=== PATIENT | female | born 1965 | race Hispanic/Latino ===

== ENCOUNTER 2020-03-29 10:23 | Emergency (ER) | payer OTHER ==
[2020-03-29] MEDS ORDERED: ACETAMINOPHEN 325 MG TAB ONE (10:43)
== END 2020-03-29 11:10 | disposition home or self-care (01) ==
LOC: EDH 10:23
DX: R05 Cough (principal); Z90.49 Acquired absence of other specified parts of digestive tract; Z20.828 Contact with and (suspected) exposure to other viral communicable diseases
CPT/HCPCS: 36415; 71045; 99284; U0003

== ENCOUNTER 2023-09-18 12:06 | Observation (INO) | payer BC, OTHER ==
[~2023-09-18] VITALS: Ht 157.5 cm; Wt 57.6 kg
[2023-09-18] MEDS ORDERED: LACTATED RINGERS 1000ML 1,000 ML IV ONE ×2 (12:30→13:30)
[2023-09-18] MEDS ORDERED: ONDANSETRON 4MG INJ IVP ONE (12:30)
[2023-09-18] MEDS ORDERED: MORPHINE 2 MG SYG IVP ONE (12:30)
[2023-09-18 12:42] LABS: HEMATOCRIT 37.2 % (36-48); MEAN CORPUSCULAR HEMOGLOBIN 32.1 pg (27.0-33.0); MEAN CORPUSCULAR HGB CONC 34.1 g/dL (32.0-36.0); MEAN CORPUSCULAR VOLUME 93.9 fL (79-99); RED BLOOD CELL COUNT(AUTO) 3.96 MIL/uL (4.00-5.50); RED CELL DISTRIBUTION WIDTH 12.3 % (11.0-15.5); WHITE BLOOD COUNT (AUTO) 12.3 K/uL (4.8-10.8)
[2023-09-18 12:50] LABS: CREATININE 0.7 mg/dL (0.5-1.5); POTASSIUM 3.6 mmol/L (3.5-5.1)
[2023-09-18 12:55] VITALS: PULSE 85; RESP 18; O2SAT 100
[2023-09-18] MEDS ORDERED: PHARMACY COMMUNICATION MISC SCH (13:00)
[2023-09-18] MEDS ORDERED: KETAMINE 50MG/ML SYRINGE 50 MG/ML DISP.SYRIN IV ONE (13:00)
[2023-09-18 13:38] LABS: MAGNESIUM 1.6 mg/dL (1.80-2.40); THYROID STIMULATING HORMONE 1.59 uIU/mL (0.36-3.74)
[2023-09-18] MEDS: LACTATED RINGERS 1000ML 1,000 ML IV SCH (14:49)
[2023-09-18] MEDS ORDERED: MAGNESIUM 2GM PREMIX 50ML 50 ML IV PRN (15:00)
[2023-09-18] MEDS ORDERED: POTASSIUM CHLORIDE 20MEQ/100ML 100 ML IV PRN (15:00)
[2023-09-18] MEDS ORDERED: ONDANSETRON 4MG INJ IV PRN (15:00)
[2023-09-18] MEDS ORDERED: DOCUSATE SODIUM 100 MG CAP PO PRN (16:00)
[2023-09-18 16:44] VITALS: BP 122/60; PULSE 74; RESP 18
[2023-09-18] MEDS ORDERED: PEG 3350/NA SULF,BICARB,CL/KCL 4000 ML SOLN PO SCH (17:00)
[2023-09-18 18:18] VITALS: O2SAT 100
[2023-09-18 20:00] VITALS: BP 121/52; PULSE 72; RESP 18; O2SAT 99
[2023-09-19] VITALS (20 sets, daily range): BP systolic 105–136; BP diastolic 45–72; PULSE 62–80; RESP 14–20; O2SAT 99
[2023-09-19] MEDS: LACTATED RINGERS 1000ML 1,000 ML IV SCH (04:08)
[2023-09-19 05:07] LABS: BASOPHILS # (AUTO) 0.02 K/uL (0.00-0.20); BASOPHILS % (AUTO) 0.2 % (0.0-5.0); EOSINOPHILS # (AUTO) 0.07 K/uL (0.00-0.70); EOSINOPHILS % (AUTO) 0.7 % (0.0-8.0); HEMATOCRIT 36.1 % (36-48); IMMATURE GRANULOCYTE ABSOLUTE 0.03 K/uL (0-1); LYMPHOCYTES # (AUTO) 3.4 K/uL (1.0-4.8); LYMPHOCYTES % (AUTO) 35.4 % (21.0-51.0); MEAN CORPUSCULAR HEMOGLOBIN 31.7 pg (27.0-33.0); MEAN CORPUSCULAR HGB CONC 32.7 g/dL (32.0-36.0); MONOCYTES # (AUTO) 0.7 K/uL (0.1-1.0); MONOCYTES % (AUTO) 7.5 % (3.0-13.0); NEUTROPHILS # (AUTO) 5.4 K/uL (1.8-7.7); NEUTROPHILS % (AUTO) 55.9 % (40.0-77.0); PLATELET COUNT (AUTO) 228 K/uL (130-400); RED BLOOD CELL COUNT(AUTO) 3.72 MIL/uL (4.00-5.50); RED CELL DISTRIBUTION WIDTH 12.7 % (11.0-15.5); WHITE BLOOD COUNT (AUTO) 9.6 K/uL (4.8-10.8)
[2023-09-19 05:41] LABS: ALBUMIN 3.1 g/dL (3.5-5.0); BILIRUBIN,TOTAL 0.5 mg/dL (0.2-1.0); CREATININE 0.6 mg/dL (0.5-1.5); TOTAL PROTEIN, SERUM 6.2 g/dL (6.0-8.3)
[2023-09-19] MEDS ORDERED: PANTOPRAZOLE 40 MG/VIAL IVP SCH (09:00)
[2023-09-19] MEDS ORDERED: PROPOFOL 10 MG/ML 20ML VIAL IV ONE ×2 (11:37)
== END 2023-09-19 18:25 | disposition home or self-care (01) ==
LOC: EDH 12:06 → INTOOBSV 14:34 → EDHIP 14:34 → 3DH 16:44
PROVIDERS: ADMIT Hospitalist; ATTEND Hospitalist
DX: K62.3 Rectal prolapse (principal); K56.41 Fecal impaction; G47.00 Insomnia, unspecified; Z98.82 Breast implant status; Z88.8 Allergy status to other drugs, medicaments and biological substances; Z79.899 Other long term (current) drug therapy
CPT/HCPCS: 96361 ×2; 96365; 96366; 96375 ×2; 99284; 84443; 83735; 80048; 85027; 36415 ×2; 74018; 80061; 80053; 85025; 88305; 45378; J3475; J7120; J2270; J2405; J3490; G0378 ×7; J2704 ×2; C9113; A4620; A4215 ×2; A4223; A7002; A4222; A4221; A4663; J7030; A4606; 96374